=== PATIENT | female | born 1955 | race American Indian/Alaskan Native ===

== ENCOUNTER 2020-09-26 10:23 | Inpatient (IN) | payer OTHER ==
--- NOTE | 2020-09-26 10:40 | Event Note ---
ED Screening Note Date of service: 09/26/20 Time: 10:40 ED Screening Note: 64-year-old -[place] female presents to the emergency room for worsening abdominal pain with distention and not able to have a bowel movement in 3 days. Patient states that she is vomiting up bile but denies any diarrhea denies any stool. Patient states she thinks she has had a history of a bowel obstruction in the past but not 100% sure. Patient states that her pain is a 10 out of 10. This initial assessment/diagnostic orders/clinical plan/treatment(s) is/are subject to change based on patients health status, clinical progression and re- assessment by fellow clinical providers in the ED. Further treatment and workup at subsequent clinical providers discretion. Patient/guardian urged not to elope from the ED as their condition may be serious if not clinically assessed and managed. Initial orders include:
[2020-09-26] MEDS ORDERED: ONDANSETRON 4 MG/2 ML INJ IV ONE (10:41)
[2020-09-26] MEDS ORDERED: SODIUM CHLORIDE 0.9% 1000 ML 1,000 ML IV ONE (10:41)
[2020-09-26] MEDS ORDERED: MORPHINE 4 MG/1 ML INJ IV ONE (11:02)
--- NOTE | 2020-09-26 11:04 | Emergency Department Report ---
HPI - General Chief Complaint: Abdominal Pain Time Seen by Provider: 09/26/20 10:35 - HPI HPI: This is a 64-year-old -[place] female presents to the emergency department with a complaint of a 2-day history of abdominal pain with associated nausea and vomiting. Patient also says that she has not had a bowel movement in about 4 to 5 days. The patient tried a laxative without any relief. Her abdominal pain is currently 10 out of 10 in intensity and sharp and constant. It worsens when she is laying on her stomach or laying on her side. No known alleviating factors. She has a past medical history of hypertension. The patient says that she has a previous hysterectomy. The patient also says that she had some type of surgery previously on her "intestines", but she is unsure whether or not she has a previous bowel obstruction. No recent travel or sick contacts at home. She is a tobacco smoker. ED Past Medical Hx - Past Medical History Previous Medical History?: Yes Hx Hypertension: Yes - Surgical History Past Surgical History?: Yes Additional Surgical History: Hysterectomy - Social History Smoking Status: Current Every Day Smoker Substance Use Type: Alcohol, Marijuana ED Review of Systems ROS: Stated complaint: ABD PAIN Other details as noted in HPI Comment: All other systems reviewed and negative Constitutional: denies: chills, fever Eyes: denies: eye pain, vision change ENT: denies: ear pain, throat pain Respiratory: denies: cough, shortness of breath Cardiovascular: denies: chest pain, palpitations Gastrointestinal: abdominal pain, nausea, vomiting, constipation Genitourinary: denies: dysuria, discharge Musculoskeletal: denies: back pain, arthralgia Skin: denies: rash, lesions Neurological: denies: headache, weakness Physical Exam - Physical Exam Vital Signs: Vital Signs 09/26/20 09/26/20 10:30 10:33 Temperature 98.5 F Pulse Rate 95 H 95 H Respiratory 18 Rate Blood Pressure 156/91 Blood Pressure 156/91 [Right] O2 Sat by Pulse 100 100 Oximetry Physical Exam: GENERAL: The patient is well-developed well-nourished. HENT: Normocephalic. Atraumatic. Patient has moist mucous membranes. EYES: Extraocular motions are intact. NECK: Supple. Trachea is midline. CHEST/LUNGS: Clear to auscultation. There is no respiratory distress noted. HEART/CARDIOVASCULAR: Regular. There is no tachycardia. There is no murmur. ABDOMEN: Abdomen is soft. Upper abdominal tenderness to palpation. Mild guarding. No rebound tenderness. Patient has normal bowel sounds. There is no abdominal distention. SKIN: Skin is warm and dry. NEURO: The patient is awake, alert, and oriented. The patient is cooperative. The patient has no focal neurologic deficits. Normal speech. MUSCULOSKELETAL: There is no tenderness or deformity. There is no limitation range of motion. ED Course Vital Signs 09/26/20 09/26/20 10:30 10:33 Temperature 98.5 F Pulse Rate 95 H 95 H Respiratory 18 Rate Blood Pressure 156/91 Blood Pressure 156/91 [Right] O2 Sat by Pulse 100 100 Oximetry ED Medical Decision Making - Lab Data Result diagrams: 09/26/20 11:22 09/26/20 11:22 Lab Results 09/26/20 09/26/20 09/26/20 Range/Units 11:22 11:22 11:22 WBC 20.1 H (4.5-11.0) K/mm3 RBC 5.67 H (3.65-5.03) M/mm3 Hgb 13.2 (10.1-14.3) gm/dl Hct 42.1 (30.3-42.9) % MCV 74 L (79-97) fl MCH 23 L (28-32) pg MCHC 31 (30-34) % RDW 16.2 H (13.2-15.2) % Plt Count 267 (140-440) K/mm3 Lymph % (Auto) 5.6 L (13.4-35.0) % [place] % (Auto) 7.8 H (0.0-7.3) % Eos % (Auto) 0.0 (0.0-4.3) % Baso % (Auto) 0.4 (0.0-1.8) % Lymph # (Auto) 1.1 L (1.2-5.4) K/mm3 [place] # (Auto) 1.6 H (0.0-0.8) K/mm3 Eos # (Auto) 0.0 (0.0-0.4) K/mm3 Baso # (Auto) 0.1 (0.0-0.1) K/mm3 Seg Neutrophils % 86.2 H (40.0-70.0) % Seg Neutrophils # 17.3 H (1.8-7.7) K/mm3 Sodium 142 (137-145) mmol/L Potassium 3.4 L (3.6-5.0) mmol/L Chloride 106.7 (98-107) mmol/L Carbon Dioxide 20 L (22-30) mmol/L Anion Gap 19 mmol/L BUN 15 (7-17) mg/dL Creatinine 0.6 (0.6-1.2) mg/dL Estimated GFR > 60 ml/min BUN/Creatinine Ratio 25 % Glucose 145 H (65-100) mg/dL Calcium 8.4 (8.4-10.2) mg/dL Total Bilirubin 0.70 (0.1-1.2) mg/dL AST 31 (5-40) units/L ALT 34 (7-56) units/L Alkaline Phosphatase 143 H (35-129) units/L Total Protein 6.8 (6.3-8.2) g/dL Albumin 3.4 L (3.9-5) g/dL Albumin/Globulin Ratio 1.0 % Lipase 980 H (13-60) units/L Urine Color (Yellow) Urine Turbidity (Clear) Urine pH (5.0-7.0) Ur Specific [place] (1.003-1.030) Urine Protein (Negative) mg/dL Urine Glucose (UA) (Negative) mg/dL Urine Ketones (Negative) mg/dL Urine Blood (Negative) Urine Nitrite (Negative) Urine Bilirubin (Negative) Urine Urobilinogen (<2.0) mg/dL Ur Leukocyte Esterase (Negative) Urine WBC (Auto) (0.0-6.0) /HPF Urine RBC (Auto) (0.0-6.0) /HPF U Epithel Cells (Auto) (0-13.0) /HPF Urine Mucus /HPF 09/26/20 Range/Units 13:34 WBC (4.5-11.0) K/mm3 RBC (3.65-5.03) M/mm3 Hgb (10.1-14.3) gm/dl Hct (30.3-42.9) % MCV (79-97) fl MCH (28-32) pg MCHC (30-34) % RDW (13.2-15.2) % Plt Count (140-440) K/mm3 Lymph % (Auto) (13.4-35.0) % [place] % (Auto) (0.0-7.3) % Eos % (Auto) (0.0-4.3) % Baso % (Auto) (0.0-1.8) % Lymph # (Auto) (1.2-5.4) K/mm3 [place] # (Auto) (0.0-0.8) K/mm3 Eos # (Auto) (0.0-0.4) K/mm3 Baso # (Auto) (0.0-0.1) K/mm3 Seg Neutrophils % (40.0-70.0) % Seg Neutrophils # (1.8-7.7) K/mm3 Sodium (137-145) mmol/L Potassium (3.6-5.0) mmol/L Chloride (98-107) mmol/L Carbon Dioxide (22-30) mmol/L Anion Gap mmol/L BUN (7-17) mg/dL Creatinine (0.6-1.2) mg/dL Estimated GFR ml/min BUN/Creatinine Ratio % Glucose (65-100) mg/dL Calcium (8.4-10.2) mg/dL Total Bilirubin (0.1-1.2) mg/dL AST (5-40) units/L ALT (7-56) units/L Alkaline Phosphatase (35-129) units/L Total Protein (6.3-8.2) g/dL Albumin (3.9-5) g/dL Albumin/Globulin Ratio % Lipase (13-60) units/L Urine Color Yellow (Yellow) Urine Turbidity Clear (Clear) Urine pH 6.0 (5.0-7.0) Ur Specific [place] 1.053 H (1.003-1.030) Urine Protein 30 mg/dl (Negative) mg/dL Urine Glucose (UA) Neg (Negative) mg/dL Urine Ketones Neg (Negative) mg/dL Urine Blood Sm (Negative) Urine Nitrite Neg (Negative) Urine Bilirubin Neg (Negative) Urine Urobilinogen < 2.0 (<2.0) mg/dL Ur Leukocyte Esterase Neg (Negative) Urine WBC (Auto) < 1.0 (0.0-6.0) /HPF Urine RBC (Auto) 3.0 (0.0-6.0) /HPF U Epithel Cells (Auto) 2.0 (0-13.0) /HPF Urine Mucus Few /HPF - Radiology Data Radiology results: report reviewed CT ABDOMEN AND PELVIS WITH CONTRAST INDICATION / CLINICAL INFORMATION: acute abd pain w/distention. TECHNIQUE: Axial CT images were obtained through the abdomen and pelvis following the administration of intravenous contrast. All CT scans at this location are performed using CT dose reduction for ALARA by means of automated exposure control. COMPARISON: None available. FINDINGS: LOWER CHEST: No significant abnormality. LIVER: Hepatic steatosis. GALLBLADDER: No significant abnormality. PANCREAS: There is peripancreatic edema and mild inflammatory change. Free fluid is seen along the posterior aspect of the pancreatic tail as well as in the region of the pancreatic head and proximal duodenum. No well-defined peripancreatic fluid collection is seen. No pancreatic necrosis is visualized. SPLEEN: No significant abnormality. ADRENALS: No significant abnormality. KIDNEYS / URETERS: No significant abnormality. URINARY BLADDER: No significant abnormality. REPRODUCTIVE ORGANS: No significant abnormality. STOMACH / SMALL BOWEL: There is questionable inflammation of the duodenum with adjacent edema. This may be sympathetic. COLON: Extensive scattered colonic diverticulosis without evidence of inflammation. APPENDIX: Not definitively visualized. PERITONEUM: There is free fluid along the posterior aspect of the pancreas as well as trace pelvic free fluid. No free air. No fluid collection. LYMPH NODES: No significant adenopathy. AORTA / ARTERIES: No significant abnormality. IVC / VEINS: No significant abnormality. SKELETAL SYSTEM: Age-indeterminate compression fracture of the superior endplate of L2 with approximately 30% height loss. ADDITIONAL FINDINGS: None. IMPRESSION: 1. Findings most compatible with acute pancreatitis without necrosis. Correlation with serum amylase and lipase is recommended. Alternatively, these findings could represent duodenitis in the right clinical setting. 2. Hepatic steatosis. 3. Age-indeterminate compression fracture of the superior endplate of L2 with 30% height loss. - Medical Decision Making This patient presents to the emergency department with a few days of upper abdominal pain and 4 to 5 days of constipation. On examination the patient has reproducible upper abdominal tenderness to palpation with some mild guarding, but the abdomen is soft and nondistended. Labs show a leukocytosis of 20,000 and later a lipase of 980. CT scan of the abdomen and pelvis with IV contrast shows pancreatitis with some possible duodenitis. The patient has been given some IV fluid resuscitation, IV analgesia, IV antibiotics. She will be admitted to the hospital for further evaluation and treatment and was accepted for ad mission by the hospitalist, Dr. Wild. Critical Care Time: No Critical care attestation.: If time is entered above; I have spent that time in minutes in the direct care of this critically ill patient, excluding procedure time. ED Disposition Clinical Impression: Duodenitis Acute pancreatitis Qualifiers: Pancreatitis type: unspecified pancreatitis type Acute pancreatitis complication: no infection or necrosis Qualified Code(s): K85.90 - Acute pancreatitis without necrosis or infection, unspecified Leukocytosis Qualifiers: Leukocytosis type: unspecified Qualified Code(s): D72.829 - Elevated white blood cell count, unspecified Hypertension Qualifiers: Hypertension type: essential hypertension Qualified Code(s): I10 - Essential (primary) hypertension Disposition: 09 OP ADMIT IP TO THIS HOSP Is pt being admited?: Yes Condition: Serious Instructions: Abdominal Pain (ED), Hypertension (ED) Referrals: PRIMARY CARE, [Primary Care Provider] - 3-5 Days Time of Disposition: 13:46
[2020-09-26 11:52] LABS: Basophils # (Auto) 0.1 K/mm3 (0.0-0.1); Basophils % (Auto) 0.4 % (0.0-1.8); Hematocrit 42.1 % (30.3-42.9); Hemoglobin 13.2 gm/dl (10.1-14.3); Lymphocytes # (Auto) 1.1 K/mm3 (1.2-5.4); Lymphocytes % (Auto) 5.6 % (13.4-35.0); Mean Corpuscular HGB Conc 31 % (30-34); Mean Corpuscular Volume 74 fl (79-97); Monocytes # (Auto) 1.6 K/mm3 (0.0-0.8); Monocytes % (Auto) 7.8 % (0.0-7.3); Platelet Count 267 K/mm3 (140-440); Red Blood Count 5.67 M/mm3 (3.65-5.03); Red Cell Distribution Width 16.2 % (13.2-15.2)
[2020-09-26 12:09] LABS: Alanine Aminotransferase 34 units/L (7-56); Albumin 3.4 g/dL (3.9-5); Blood Urea Nitrogen 15 mg/dL (7-17); Calcium 8.4 mg/dL (8.4-10.2); Hemolysis Index 4
[2020-09-26 12:10] LABS: BUN/Creatinine Ratio 25
--- NOTE | 2020-09-26 13:00 | Cat Scan Report ---
CT ABDOMEN AND PELVIS WITH CONTRAST INDICATION / CLINICAL INFORMATION: acute abd pain w/distention. TECHNIQUE: Axial CT images were obtained through the abdomen and pelvis following the administration of intraven ous contrast. All CT scans at this location are performed using CT dose reduction for ALARA by means of automated exposure control. COMPARISON: None available. FINDINGS: LOWER CHEST: No significant abnormality. LIVER: Hepatic steatosis. GALLBLADDER: No significant abnormality. PANCREAS: There is peripancreatic edema and mild inflammatory change. Free fluid is seen along the po sterior aspect of the pancreatic tail as well as in the region of the pancreatic head and proximal du odenum. No well-defined peripancreatic fluid collection is seen. No pancreatic necrosis is visualized . SPLEEN: No significant abnormality. ADRENALS: No significant abnormality. KIDNEYS / URETERS: No significant abnormality. URINARY BLADDER: No significant abnormality. REPRODUCTIVE ORGANS: No significant abnormality. STOMACH / SMALL BOWEL: There is questionable inflammation of the duodenum with adjacent edema. This m ay be sympathetic. COLON: Extensive scattered colonic diverticulosis without evidence of inflammation. APPENDIX: Not definitively visualized. PERITONEUM: There is free fluid along the posterior aspect of the pancreas as well as trace pelvic fr ee fluid. No free air. No fluid collection. LYMPH NODES: No significant adenopathy. AORTA / ARTERIES: No significant abnormality. IVC / VEINS: No significant abnormality. SKELETAL SYSTEM: Age-indeterminate compression fracture of the superior endplate of L2 with approxima tely 30% height loss. ADDITIONAL FINDINGS: None. IMPRESSION: 1. Findings most compatible with acute pancreatitis without necrosis. Correlation with serum amylase and lipase is recommended. Alternatively, these findings could represent duodenitis in the right clin ical setting. 2. Hepatic steatosis. 3. Age-indeterminate compression fracture of the superior endplate of L2 with 30% height loss. Signer Name: Esteban Crawford MD Signed: 09/26/2020 12:55 PM Workstation Name: [id number]
[2020-09-26] MEDS ORDERED: PIPERACIL/TAZOBACTA 4.5/NS 100 4.5 GM/100 ML VIAL IV ONE (13:05)
[2020-09-26 14:05] LABS: Bilirubin,Urine NEG (Negative); Blood,Urine SM (Negative); Color,Urine Yellow (Yellow); Mucus,Urine FEW /HPF; Urobilinogen,Urine < 2.0 mg/dL (<2.0); WBC,Urine < 1.0 /HPF (0.0-6.0)
[2020-09-26] MEDS ORDERED: ONDANSETRON 4 MG/2 ML INJ IV PRN ×3 (19:06→19:40)
[2020-09-26] MEDS ORDERED: ACETAMINOPHEN 325 MG TAB PO PRN ×2 (19:35→19:40)
--- NOTE | 2020-09-26 19:35 | History and Physical Report ---
History of Present Illness Date of examination: 09/26/20 Date of admission: 09/26/20 13:46 Chief complaint: Severe abdominal pain for 2 days associated with nausea and vomiting History of present illness: 64-year-old -[place] female with history of hypertension comes in for 2- day history of epigastric pain associated with nausea and vomiting. Pain is about 10 on a scale of 1-10. Intermittent in nature. Sharp and nature. Worsens when she lies on her stomach. No known alleviating factors. This is her first episode. Patient consumed some alcohol on Sunday which is 2 days ago. No history of alcoholism. No precipitating factors except for positional changes. - Past Medical History Previous Medical History?: Yes --Hypertension: Yes - Surgical History Past Surgical History?: Yes Hysterectomy - Social History Smoking Status: Current Every Day Smoker Substance Use Type: Alcohol, Marijuana Family history Hypertension Review of Systems ROS: Stated complaint: ABD PAIN--severe 10/10 Other details as noted in HPI Comment: All other systems reviewed and negative Constitutional: denies: chills, fever Eyes: denies: eye pain, vision change ENT: denies: ear pain, throat pain Respiratory: denies: cough, shortness of breath Cardiovascular: denies: chest pain, palpitations Gastrointestinal: Severe abdominal pain associated with nausea and vomiting Genitourinary: denies: dysuria, discharge Musculoskeletal: denies: back pain, arthralgia Skin: denies: rash, lesions Neurological: denies: headache, weakness Medications and Allergies Allergies Allergy/AdvReac Type Severity Reaction Status Date / Time No Known Allergies Allergy Verified 09/26/20 19:10 Home Medications Medication Instructions Recorded Confirmed Last Taken Type amLODIPine [Norvasc] 5 mg PO DAILY 09/27/20 09/27/20 09/25/20 08:45 History Active Meds: Active Medications Hydromorphone HCl (Hydromorphone 1 Mg/1 Ml Inj) 0.5 mg IV Q3H PRN PRN Reason: Pain , Severe (7-10) Ondansetron HCl (Ondansetron 4 Mg/2 Ml Inj) 6 mg IV Q6H PRN PRN Reason: Nausea Exam - Constitutional Vitals: Temp Pulse Resp BP Pulse Ox 98.6 F 94 H 18 165/90 99 09/26/20 18:45 09/26/20 18:45 09/26/20 18:45 09/26/20 18:45 09/26/20 18:45 General appearance: Present: no acute distress, well-nourished - EENT Eyes: Present: PERRL ENT: hearing intact, clear oral mucosa - Neck Neck: Present: supple, normal ROM - Respiratory Respiratory effort: normal Respiratory: bilateral: CTA - Cardiovascular Heart rate: 78 Rhythm: regular Heart Sounds: Present: S1 & S2. Absent: rub, click - Extremities Extremities: pulses symmetrical, No edema Peripheral Pulses: within normal limits - Abdominal General gastrointestinal: Present: soft, non-tender, non-distended, normal bowel sounds Localized gastrointestinal: tender: epigastric periumbilical, guarding: epigastric periumbilical Female genitourinary: Present: normal - Rectal Rectal Exam: deferred - Integumentary Integumentary: Present: clear, warm, dry - Musculoskeletal Musculoskeletal: gait normal, strength equal bilaterally - Psychiatric Psychiatric: appropriate mood/affect, intact judgment & insight - Neurologic Neurologic: CNII-XII intact, moves all extremities - Allied Health Allied health notes reviewed: nursing, case management Results - Labs CBC & Chem 7: 09/27/20 04:54 09/27/20 04:54 Labs: Laboratory Last Values WBC 20.1 K/mm3 (4.5-11.0) H 09/26/20 11:22 RBC 5.67 M/mm3 (3.65-5.03) H 09/26/20 11:22 Hgb 13.2 gm/dl (10.1-14.3) 09/26/20 11:22 Hct 42.1 % (30.3-42.9) 09/26/20 11:22 MCV 74 fl (79-97) L 09/26/20 11:22 MCH 23 pg (28-32) L 09/26/20 11:22 MCHC 31 % (30-34) 09/26/20 11:22 RDW 16.2 % (13.2-15.2) H 09/26/20 11:22 Plt Count 267 K/mm3 (140-440) 09/26/20 11:22 Lymph % (Auto) 5.6 % (13.4-35.0) L 09/26/20 11:22 [place] % (Auto) 7.8 % (0.0-7.3) H 09/26/20 11:22 Eos % (Auto) 0.0 % (0.0-4.3) 09/26/20 11:22 Baso % (Auto) 0.4 % (0.0-1.8) 09/26/20 11:22 Lymph # (Auto) 1.1 K/mm3 (1.2-5.4) L 09/26/20 11:22 [place] # (Auto) 1.6 K/mm3 (0.0-0.8) H 09/26/20 11:22 Eos # (Auto) 0.0 K/mm3 (0.0-0.4) 09/26/20 11:22 Baso # (Auto) 0.1 K/mm3 (0.0-0.1) 09/26/20 11:22 Seg Neutrophils % 86.2 % (40.0-70.0) H 09/26/20 11:22 Seg Neutrophils # 17.3 K/mm3 (1.8-7.7) H 09/26/20 11:22 Sodium 142 mmol/L (137-145) 09/26/20 11:22 Potassium 3.4 mmol/L (3.6-5.0) L 09/26/20 11:22 Chloride 106.7 mmol/L (98-107) 09/26/20 11:22 Carbon Dioxide 20 mmol/L (22-30) L 09/26/20 11:22 Anion Gap 19 mmol/L 09/26/20 11:22 BUN 15 mg/dL (7-17) 09/26/20 11:22 Creatinine 0.6 mg/dL (0.6-1.2) 09/26/20 11:22 Estimated GFR > 60 ml/min 09/26/20 11:22 BUN/Creatinine Ratio 25 % 09/26/20 11:22 Glucose 145 mg/dL (65-100) H 09/26/20 11:22 Calcium 8.4 mg/dL (8.4-10.2) 09/26/20 11:22 Total Bilirubin 0.70 mg/dL (0.1-1.2) 09/26/20 11:22 AST 31 units/L (5-40) 09/26/20 11:22 ALT 34 units/L (7-56) 09/26/20 11:22 Alkaline Phosphatase 143 units/L (35-129) H 09/26/20 11:22 Total Protein 6.8 g/dL (6.3-8.2) 09/26/20 11:22 Albumin 3.4 g/dL (3.9-5) L 09/26/20 11:22 Albumin/Globulin Ratio 1.0 % 09/26/20 11:22 Lipase 980 units/L (13-60) H 09/26/20 11:22 Urine Color Yellow (Yellow) 09/26/20 13:34 Urine Turbidity Clear (Clear) 09/26/20 13:34 Urine pH 6.0 (5.0-7.0) 09/26/20 13:34 Ur Specific [place] 1.053 (1.003-1.030) H 09/26/20 13:34 Urine Protein 30 mg/dl mg/dL (Negative) 09/26/20 13:34 Urine Glucose (UA) Neg mg/dL (Negative) 09/26/20 13:34 Urine Ketones Neg mg/dL (Negative) 09/26/20 13:34 Urine Blood Sm (Negative) 09/26/20 13:34 Urine Nitrite Neg (Negative) 09/26/20 13:34 Urine Bilirubin Neg (Negative) 09/26/20 13:34 Urine Urobilinogen < 2.0 mg/dL (<2.0) 09/26/20 13:34 Ur Leukocyte Esterase Neg (Negative) 09/26/20 13:34 Urine WBC (Auto) < 1.0 /HPF (0.0-6.0) 09/26/20 13:34 Urine RBC (Auto) 3.0 /HPF (0.0-6.0) 09/26/20 13:34 U Epithel Cells (Auto) 2.0 /HPF (0-13.0) 09/26/20 13:34 Urine Mucus Few /HPF 09/26/20 13:34 Short CBC 09/26/20 Range/Units 11:22 WBC 20.1 H (4.5-11.0) K/mm3 Hgb 13.2 (10.1-14.3) gm/dl Hct 42.1 (30.3-42.9) % Plt Count 267 (140-440) K/mm3 BMP 09/26/20 11:22 Sodium 142 Potassium 3.4 L Chloride 106.7 Carbon Dioxide 20 L BUN 15 Creatinine 0.6 Glucose 145 H Calcium 8.4 Liver Function 09/26/20 Range/Units 11:22 Total Bilirubin 0.70 (0.1-1.2) mg/dL AST 31 (5-40) units/L ALT 34 (7-56) units/L Alkaline Phosphatase 143 H (35-129) units/L Albumin 3.4 L (3.9-5) g/dL Urine 09/26/20 Range/Units 13:34 Urine Color Yellow (Yellow) Urine pH 6.0 (5.0-7.0) Ur Specific [place] 1.053 H (1.003-1.030) Urine Protein 30 mg/dl (Negative) mg/dL Urine Glucose (UA) Neg (Negative) mg/dL Short CBC 09/26/20 09/27/20 Range/Units 11:22 04:54 WBC 20.1 H 21.1 H (4.5-11.0) K/mm3 Hgb 13.2 13.5 (10.1-14.3) gm/dl Hct 42.1 41.7 (30.3-42.9) % Plt Count 267 237 (140-440) K/mm3 BMP 09/26/20 09/27/20 11:22 04:54 Sodium 142 140 Potassium 3.4 L 3.5 L Chloride 106.7 106.1 Carbon Dioxide 20 L 21 L BUN 15 12 Creatinine 0.6 0.6 Glucose 145 H 108 H Calcium 8.4 8.5 Liver Function 09/26/20 09/27/20 Range/Units 11:22 04:54 Total Bilirubin 0.70 0.60 (0.1-1.2) mg/dL AST 31 22 (5-40) units/L ALT 34 25 (7-56) units/L Alkaline Phosphatase 143 H 136 H (35-129) units/L Albumin 3.4 L 3.3 L (3.9-5) g/dL Urine 09/26/20 Range/Units 13:34 Urine Color Yellow (Yellow) Urine pH 6.0 (5.0-7.0) Ur Specific [place] 1.053 H (1.003-1.030) Urine Protein 30 mg/dl (Negative) mg/dL Urine Glucose (UA) Neg (Negative) mg/dL Microbiology: Microbiology 09/26/20 13:22 Peripheral/Venous Blood Culture - Preliminary Culture in Progress 09/26/20 13:22 Peripheral/Venous Blood Culture - Preliminary Culture in Progress - Imaging and Cardiology CT scan - abdomen: report reviewed Imaging and Cardiology: Abdominal CAT scan Findings most compatible with acute pancreatitis without necrosis. Correlate with serum amylase and lipase. Alternate previous findings could represent duodenitis in the right clinical setting. Hepatic steatosis. Age-indeterminate compression fracture of the superior endplate of L2 with 30% height loss. Kim/IV: IV Catheter Type [Left Peripheral IV Antecubital] Assessment and Plan Advance Directives: Yes - Patient Problems (1) Systemic inflammatory response syndrome Current Visit: Yes Status: Acute Plan to address problem: Patient has a high white count and tachycardic No source of infection found High white count secondary to acute pancreatitis Patient initiated on IV empiric antibiotics (2) Acute pancreatitis Current Visit: Yes Status: Acute Qualifiers: Pancreatitis type: unspecified pancreatitis type Acute pancreatitis complication: no infection or necrosis Qualified Code(s): K85.90 - Acute pancreatitis without necrosis or infection, unspecified Plan to address problem: Patient is kept n.p.o. IV Dilaudid 0.5 every 3 as needed IV fluids for now Pain management IV Zofran and Reglan as necessary Repeat amylase and lipase lipase is very high in the 900s (3) Hypertension Current Visit: Yes Status: Chronic Qualifiers: Hypertension type: essential hypertension Qualified Code(s): I10 - Essential (primary) hypertension Plan to address problem: Adjust medications as necessary May need Catapres patch (4) Duodenitis Current Visit: Yes Status: Acute Plan to address problem: IV Protonix for now (5) Hypokalemia Current Visit: Yes Status: Acute Plan to address problem: Supplemented (6) RBC microcytosis Current Visit: Yes Status: Chronic Plan to address problem: Possible iron deficiency anemia Iron level being checked (7) Malnutrition Current Visit: Yes Status: Chronic Qualifiers: Protein-calorie malnutrition severity: mild Plan to address problem: Dietitian consult because the patient is n.p.o. (8) DVT prophylaxis Current Visit: Yes Status: Acute Plan to address problem: On heparin and GI prophylaxis
[2020-09-26] MEDS ORDERED: METOCLOPRAMIDE 10 MG/2 ML INJ IV PRN (19:40)
[2020-09-26] MEDS: HYDROmorphone 1 MG/1 ML INJ IV PRN (20:06)
[2020-09-26] MEDS ORDERED: FAMOTIDINE 20 MG/2 ML INJ IV SCH (22:00)
[2020-09-27] MEDS ORDERED: hydrALAZINE 20 MG/1 ML INJ IV PRN (00:37)
[2020-09-27] MEDS: HYDROmorphone 1 MG/1 ML INJ IV PRN ×5 (00:49→21:50)
[2020-09-27] MEDS: CEFEPIME/NS 2 GM/100 ML 2 GM/100 ML BAG IV SCH ×4 (03:53→21:53)
[2020-09-27 05:28] LABS: Hematocrit 41.7 % (30.3-42.9); Hemoglobin 13.5 gm/dl (10.1-14.3); Mean Corpuscular HGB Conc 32 % (30-34); Mean Corpuscular Volume 74 fl (79-97); Platelet Count 237 K/mm3 (140-440); Red Blood Count 5.66 M/mm3 (3.65-5.03); Red Cell Distribution Width 16.1 % (13.2-15.2)
[2020-09-27 05:55] LABS: Alanine Aminotransferase 25 units/L (7-56); Albumin 3.3 g/dL (3.9-5); Blood Urea Nitrogen 12 mg/dL (7-17); Calcium 8.5 mg/dL (8.4-10.2); Hemolysis Index 3
[2020-09-27 06:10] LABS: BUN/Creatinine Ratio 20
[2020-09-27 06:19] LABS: Anisocytosis 1+; Eosinophils % (Manual) 0.5 % (0.0-4.3); Platelet Estimate Consistent w Auto; Total Cells Counted 200
[2020-09-27] MEDS ORDERED: NICOTINE 14 MG/24 HR PATCH TD ONE (06:42)
[2020-09-27] MEDS ORDERED: cloNIDine TTS 0.1 MG/24 HR PATCH TD SCH (07:00)
[2020-09-27] MEDS: D5W/0.9% NACL 1,000 ML IV SCH (08:29)
[2020-09-27] MEDS ORDERED: NICOTINE 14 MG/24 HR PATCH TD NR (09:00)
[2020-09-27] MEDS: PANTOPRAZOLE 40 MG INJ IV SCH ×2 (10:31→21:50)
[2020-09-27] MEDS: HEPARIN 5,000 UNIT/1 ML VIAL SUB-Q SCH ×2 (10:41→21:51)
--- NOTE | 2020-09-27 16:57 | Progress Note ---
Assessment and Plan Assessment and plan: SIRS -Presented with leukocytosis and tachycardia -09/26 blood cultures x2 pending -09/26 CT abdomen/pelvis shows acute pancreatitis -Antibiotic therapy -Supportive care Acute pancreatitis -09/26 CT abdomen/pelvis shows -Abdomen lipase 908 -09/27 amylase 331 -Antibiotic therapy -N.p.o. -MIVF -Accu-Cheks every 4 while n.p.o. -Supportive care -Antiemetics as needed -As needed analgesic -Trend amylase and lipase Duodenitis -09/26 CT abdomen/pelvis shows possible duodenitis -Protonix -Supportive care Hypokalemia -Presented with a potassium of 3.4, repleted -09/16 potassium 3.5 -Repleted -Trend potassium -Intervene as needed Metabolic acidosis -09/26 CO2 20 on BMP -09/27 CO2 21 -MIVF -Trend BMP Leukocytosis -Presented with WBC of 20.1, 09/27 WBC 21.1 -Antibiotic therapy -Trend CBC RBC microcytosis -Presented with H/H 13.2/42.1, MCV 74 -09/26 iron level pending -09/27 Folic acid pending Malnutrition -Dietary consult -Nutrition supplementation when not n.p.o. Hypertension -Patient was initiated on clonidine transdermal -Blood pressure monitoring per protocol -Patient's home medications include Norvasc -Hydralazine as needed for SBP greater than 160 DVT prophylaxis -Heparin subcu -GI prophylaxis -SCDs to bilateral extremities while in bed History Interval history: This 64-year-old female with hypertension, tobacco, marijuana and EtOH abuse (1 pint of hard liquor per 2 days with occasional 1 glass of wine) who was admitted to the hospital on 09/26 with a 2-day history of sharp, intermittent epigastric pain 06/05 associated with nausea and vomiting which worsened with prone position. Work-up in the emergency department revealed leukocytosis, hypokale aron, metabolic acidosis with elevated alkaline phos lipase and amylase. Her abdomen/pelvis CT showed acute pancreatitis without necrosis, hepatic steatosis and age indeterminate compression fracture of the superior endplate of L2. Patient was admitted to the hospital service for acute pancreatitis, n.p.o. and initiated antibiotic therapy. 09/27: Hypokalemia, metabolic acidosis persists but no acute events reported overnight. Patient states that she is symptomatically better, states her abdomen does swell to the appearance of 5-6 months and expresses wish for alcohol and tobacco cessation Hospitalist Physical - Constitutional Vitals: Temp Pulse Resp BP Pulse Ox 99.1 F 87 18 146/88 98 09/27/20 08:51 09/27/20 10:34 09/27/20 08:51 09/27/20 10:34 09/27/20 08:51 General appearance: Present: no acute distress, well-nourished - EENT Eyes: Present: PERRL, EOM intact ENT: hearing intact, clear oral mucosa, dentition normal - Neck Neck: Present: normal ROM - Respiratory Respiratory effort: normal Respiratory: bilateral: CTA - Cardiovascular Rhythm: regular Heart Sounds: Present: S1 & S2. Absent: systolic murmur, diastolic murmur - Extremities Extremities: no ischemia, pulses intact, pulses symmetrical, No edema, normal temperature, normal color, Full ROM - Abdominal General gastrointestinal: soft, tender, distended, normal bowel sounds - Integumentary Integumentary: Present: clear, warm, dry - Psychiatric Psychiatric: appropriate mood/affect, cooperative - Neurologic Neurologic: CNII-XII intact, no focal deficits, moves all extremities - Allied Health Allied health notes reviewed: nursing Results - Labs CBC & Chem 7: 09/27/20 04:54 09/27/20 04:54 Labs: Laboratory Last Values WBC 21.1 K/mm3 (4.5-11.0) H 09/27/20 04:54 RBC 5.66 M/mm3 (3.65-5.03) H 09/27/20 04:54 Hgb 13.5 gm/dl (10.1-14.3) 09/27/20 04:54 Hct 41.7 % (30.3-42.9) 09/27/20 04:54 MCV 74 fl (79-97) L 09/27/20 04:54 MCH 24 pg (28-32) L 09/27/20 04:54 MCHC 32 % (30-34) 09/27/20 04:54 RDW 16.1 % (13.2-15.2) H 09/27/20 04:54 Plt Count 237 K/mm3 (140-440) 09/27/20 04:54 Lymph % (Auto) 5.6 % (13.4-35.0) L 09/26/20 11:22 [place] % (Auto) 7.8 % (0.0-7.3) H 09/26/20 11:22 Eos % (Auto) 0.0 % (0.0-4.3) 09/26/20 11:22 Baso % (Auto) 0.4 % (0.0-1.8) 09/26/20 11:22 Lymph # (Auto) 1.1 K/mm3 (1.2-5.4) L 09/26/20 11:22 Jefferson # (Auto) 1.6 K/mm3 (0.0-0.8) H 09/26/20 11:22 Eos # (Auto) 0.0 K/mm3 (0.0-0.4) 09/26/20 11:22 Baso # (Auto) 0.1 K/mm3 (0.0-0.1) 09/26/20 11:22 Add Manual Diff Complete 09/27/20 04:54 Total Counted 200 09/27/20 04:54 Seg Neutrophils % 86.2 % (40.0-70.0) H 09/26/20 11:22 Seg Neuts % (Manual) 88.5 % (40.0-70.0) H 09/27/20 04:54 Lymphocytes % (Manual) 8.0 % (13.4-35.0) L 09/27/20 04:54 Monocytes % (Manual) 3.0 % (0.0-7.3) 09/27/20 04:54 Eosinophils % (Manual) 0.5 % (0.0-4.3) 09/27/20 04:54 Nucleated RBC % Not Reportable 09/27/20 04:54 Seg Neutrophils # 17.3 K/mm3 (1.8-7.7) H 09/26/20 11:22 Seg Neutrophils # Man 18.7 K/mm3 (1.8-7.7) H 09/27/20 04:54 Band Neutrophils # 0.0 K/mm3 09/27/20 04:54 Lymphocytes # (Manual) 1.7 K/mm3 (1.2-5.4) 09/27/20 04:54 Abs React Lymphs (Man) 0.0 K/mm3 09/27/20 04:54 Monocytes # (Manual) 0.6 K/mm3 (0.0-0.8) 09/27/20 04:54 Eosinophils # (Manual) 0.1 K/mm3 (0.0-0.4) 09/27/20 04:54 Basophils # (Manual) 0.0 K/mm3 (0.0-0.1) 09/27/20 04:54 Metamyelocytes # 0.0 K/mm3 09/27/20 04:54 Myelocytes # 0.0 K/mm3 09/27/20 04:54 Promyelocytes # 0.0 K/mm3 09/27/20 04:54 Blast Cells # 0.0 K/mm3 09/27/20 04:54 WBC Morphology Not Reportable 09/27/20 04:54 Hypersegmented Neuts Not Reportable 09/27/20 04:54 Hyposegmented Neuts Not Reportable 09/27/20 04:54 Hypogranular Neuts Not Reportable 09/27/20 04:54 Smudge Cells Not Reportable 09/27/20 04:54 Toxic Granulation Not Reportable 09/27/20 04:54 Toxic Vacuolation Not Reportable 09/27/20 04:54 Dohle Bodies Not Reportable 09/27/20 04:54 Pelger-Huet Anomaly Not Reportable 09/27/20 04:54 Cammie Rods Not Reportable 09/27/20 04:54 Platelet Estimate Consistent w auto 09/27/20 04:54 Clumped Platelets Not Reportable 09/27/20 04:54 Plt Clumps, EDTA Not Reportable 09/27/20 04:54 Large Platelets Not Reportable 09/27/20 04:54 Giant Platelets Not Reportable 09/27/20 04:54 Platelet Satelliting Not Reportable 09/27/20 04:54 Plt Morphology Comment Not Reportable 09/27/20 04:54 RBC Morphology Not Reportable 09/27/20 04:54 Dimorphic RBCs Not Reportable 09/27/20 04:54 Polychromasia Not Reportable 09/27/20 04:54 Hypochromasia Not Reportable 09/27/20 04:54 Poikilocytosis Not Reportable 09/27/20 04:54 Anisocytosis 1+ 09/27/20 04:54 Microcytosis Not Reportable 09/27/20 04:54 Macrocytosis Not Reportable 09/27/20 04:54 Spherocytes Not Reportable 09/27/20 04:54 Pappenheimer Bodies Not Reportable 09/27/20 04:54 Sickle Cells Not Reportable 09/27/20 04:54 Target Cells Not Reportable 09/27/20 04:54 Tear Drop Cells Not Reportable 09/27/20 04:54 Ovalocytes Not Reportable 09/27/20 04:54 Helmet Cells Not Reportable 09/27/20 04:54 Rios-Sanborn Bodies Not Reportable 09/27/20 04:54 [place] Rings Not Reportable 09/27/20 04:54 Brock Cells Not Reportable 09/27/20 04:54 Bite Cells Not Reportable 09/27/20 04:54 Crenated Cell Not Reportable 09/27/20 04:54 Elliptocytes Not Reportable 09/27/20 04:54 Acanthocytes (Spur) Not Reportable 09/27/20 04:54 Rouleaux Not Reportable 09/27/20 04:54 Hemoglobin C Crystals Not Reportable 09/27/20 04:54 Schistocytes Not Reportable 09/27/20 04:54 Malaria parasites Not Reportable 09/27/20 04:54 Jose Bodies Not Reportable 09/27/20 04:54 Hem Pathologist Commnt No 09/27/20 04:54 Sodium 140 mmol/L (137-145) 09/27/20 04:54 Potassium 3.5 mmol/L (3.6-5.0) L 09/27/20 04:54 Chloride 106.1 mmol/L (98-107) 09/27/20 04:54 Carbon Dioxide 21 mmol/L (22-30) L 09/27/20 04:54 Anion Gap 16 mmol/L 09/27/20 04:54 BUN 12 mg/dL (7-17) 09/27/20 04:54 Creatinine 0.6 mg/dL (0.6-1.2) 09/27/20 04:54 Estimated GFR > 60 ml/min 09/27/20 04:54 BUN/Creatinine Ratio 20 % 09/27/20 04:54 Glucose 108 mg/dL (65-100) H 09/27/20 04:54 Calcium 8.5 mg/dL (8.4-10.2) 09/27/20 04:54 Total Bilirubin 0.60 mg/dL (0.1-1.2) 09/27/20 04:54 AST 22 units/L (5-40) 09/27/20 04:54 ALT 25 units/L (7-56) 09/27/20 04:54 Alkaline Phosphatase 136 units/L (35-129) H 09/27/20 04:54 Total Protein 6.8 g/dL (6.3-8.2) 09/27/20 04:54 Albumin 3.3 g/dL (3.9-5) L 09/27/20 04:54 Albumin/Globulin Ratio 0.9 % 09/27/20 04:54 Amylase 331 units/L (27-131) H 09/27/20 04:54 Lipase 980 units/L (13-60) H 09/26/20 11:22 Urine Color Yellow (Yellow) 09/26/20 13:34 Urine Turbidity Clear (Clear) 09/26/20 13:34 Urine pH 6.0 (5.0-7.0) 09/26/20 13:34 Ur Specific [place] 1.053 (1.003-1.030) H 09/26/20 13:34 Urine Protein 30 mg/dl mg/dL (Negative) 09/26/20 13:34 Urine Glucose (UA) Neg mg/dL (Negative) 09/26/20 13:34 Urine Ketones Neg mg/dL (Negative) 09/26/20 13:34 Urine Blood Sm (Negative) 09/26/20 13:34 Urine Nitrite Neg (Negative) 09/26/20 13:34 Urine Bilirubin Neg (Negative) 09/26/20 13:34 Urine Urobilinogen < 2.0 mg/dL (<2.0) 09/26/20 13:34 Ur Leukocyte Esterase Neg (Negative) 09/26/20 13:34 Urine WBC (Auto) < 1.0 /HPF (0.0-6.0) 09/26/20 13:34 Urine RBC (Auto) 3.0 /HPF (0.0-6.0) 09/26/20 13:34 U Epithel Cells (Auto) 2.0 /HPF (0-13.0) 09/26/20 13:34 Urine Mucus Few /HPF 09/26/20 13:34 Microbiology: Microbiology 09/26/20 13:22 Peripheral/Venous Blood Culture - Preliminary NO GROWTH AFTER 24 HOURS 09/26/20 13:22 Peripheral/Venous Blood Culture - Preliminary NO GROWTH AFTER 24 HOURS Kim/IV: Voiding Method Toilet IV Catheter Type [Left Peripheral IV Antecubital] Active Medications - Current Medications Current Medications: Generic Name Dose Route Start Last Admin Trade Name Freq PRN Reason Stop Dose Admin Acetaminophen 650 mg 09/26/20 19:35 Acetaminophen 325 Mg Tab PO Q4H PRN Pain MILD(1-3)/Fever >100.5/MONTOYA Clonidine HCl 0.1 mg 09/27/20 07:00 09/27/20 10:34 Clonidine Tts 0.1 Mg/24 Hr Patch TD 0.1 mg Mo MAGGIE Administration Heparin Sodium (Porcine) 5,000 unit 09/27/20 10:00 09/27/20 10:41 Heparin 5,000 Unit/1 Ml Vial SUB-Q 5,000 unit Q12HR MAGGIE Administration Hydralazine HCl 10 mg 09/27/20 00:37 09/27/20 00:50 Hydralazine 20 Mg/1 Ml Inj IV 10/01/20 00:36 10 mg Q6HR PRN Administration Hypertension Hydromorphone HCl 0.5 mg 09/26/20 19:06 09/27/20 16:28 Hydromorphone 1 Mg/1 Ml Inj IV 0.5 mg Q3H PRN Administration Pain , Severe (7-10) Dextrose/Sodium Chloride 1,000 mls @ 75 mls/hr 09/26/20 20:00 09/27/20 08:29 D5ns IV 75 mls/hr DIRECT MAGGIE Administration Cefepime HCl 2 gm in 100 mls @ 200 mls/hr 09/26/20 20:00 09/27/20 12:03 Cefepime/Ns 2 Gm/100 Ml IV 200 mls/hr Q8H MAGGIE Administration Protocol Potassium Chloride 10 meq in 100 mls @ 100 mls/hr 09/27/20 17:00 Kcl 10meq/100ml IV 09/27/20 18:59 Q1H MAGGIE Magnesium Hydroxide 30 ml 09/27/20 17:00 Magnesium Hydroxide (Mom) Oral Liqd Udc PO Q8H PRN Constipation Metoclopramide HCl 10 mg 09/26/20 19:40 Metoclopramide 10 Mg/2 Ml Inj IV Q6H PRN Nausea And Vomiting Ondansetron HCl 4 mg 09/26/20 19:40 09/26/20 20:06 Ondansetron 4 Mg/2 Ml Inj IV 4 mg Q3H PRN Administration Nausea And Vomiting Pantoprazole Sodium 40 mg 09/27/20 10:00 09/27/20 10:31 Pantoprazole 40 Mg Inj IV 40 mg BID MAGGIE Administration Sodium Chloride 10 ml 09/26/20 19:35 Sodium Chloride 0.9% 10 Ml Flush Syringe IV PRN PRN LINE FLUSH Sodium Chloride 10 ml 09/26/20 22:00 09/27/20 10:49 Sodium Chloride 0.9% 10 Ml Flush Syringe IV Not Given BID MAGGIE
[2020-09-27] MEDS: MAGNESIUM HYDROXIDE (MOM) ORAL LIQD UDC PO PRN (17:12)
[2020-09-27 18:10] LABS: Iron 102 ug/dL (37-170); Total Iron Binding Capacity 298 mcg/dL (250-450)
[2020-09-27] MEDS: POTASSIUM CHLORIDE 10 MEQ 10 MEQ/100 ML BAG IV SCH ×2 (18:14→19:32)
[2020-09-28] MEDS: HYDROmorphone 1 MG/1 ML INJ IV PRN ×5 (00:51→19:47)
[2020-09-28] MEDS: D5W/0.9% NACL 1,000 ML IV SCH ×2 (00:55→19:34)
[2020-09-28] MEDS: CEFEPIME/NS 2 GM/100 ML 2 GM/100 ML BAG IV SCH ×3 (04:57→21:34)
[2020-09-28] MEDS: MAGNESIUM HYDROXIDE (MOM) ORAL LIQD UDC PO PRN (05:55)
[2020-09-28 07:16] LABS: Hematocrit 35.8 % (30.3-42.9); Hemoglobin 11.8 gm/dl (10.1-14.3); Mean Corpuscular HGB Conc 33 % (30-34); Mean Corpuscular Volume 74 fl (79-97); Platelet Count 206 K/mm3 (140-440); Red Blood Count 4.87 M/mm3 (3.65-5.03); Red Cell Distribution Width 15.7 % (13.2-15.2)
[2020-09-28 07:40] LABS: Alanine Aminotransferase 16 units/L (7-56); Blood Urea Nitrogen 9 mg/dL (7-17); Hemolysis Index 1
[2020-09-28 07:54] LABS: BUN/Creatinine Ratio 15
[2020-09-28] MEDS: PANTOPRAZOLE 40 MG INJ IV SCH ×2 (10:24→21:34)
[2020-09-28] MEDS: HEPARIN 5,000 UNIT/1 ML VIAL SUB-Q SCH ×2 (10:25→21:35)
--- NOTE | 2020-09-28 17:46 | Progress Note ---
Assessment and Plan - Patient Problems (1) Systemic inflammatory response syndrome Current Visit: Yes Status: Acute Plan to address problem: Patient has a high white count and tachycardic No source of infection found High white count secondary to acute pancreatitis Patient initiated on IV empiric antibiotics (2) Acute pancreatitis Current Visit: Yes Status: Acute Qualifiers: Pancreatitis type: unspecified pancreatitis type Acute pancreatitis complication: no infection or necrosis Qualified Code(s): K85.90 - Acute pancreatitis without necrosis or infection, unspecified Plan to address problem: Patient is kept n.p.o. IV Dilaudid 0.5 every 3 as needed IV fluids for now Pain management IV Zofran and Reglan as necessary Repeat amylase and lipase lipase is very high in the 900s (3) Hypertension Current Visit: Yes Status: Chronic Qualifiers: Hypertension type: essential hypertension Qualified Code(s): I10 - Essential (primary) hypertension Plan to address problem: Adjust medications as necessary May need Catapres patch (4) Duodenitis Current Visit: Yes Status: Acute Plan to address problem: IV Protonix for now (5) Hypokalemia Current Visit: Yes Status: Acute Plan to address problem: Supplemented (6) RBC microcytosis Current Visit: Yes Status: Chronic Plan to address problem: Possible iron deficiency anemia Iron level being checked (7) Malnutrition Current Visit: Yes Status: Chronic Qualifiers: Protein-calorie malnutrition severity: mild Plan to address problem: Dietitian consult because the patient is n.p.o. (8) DVT prophylaxis Current Visit: Yes Status: Acute Plan to address problem: On heparin and GI prophylaxis Subjective Date of service: 09/28/20 Objective - Constitutional Vitals: Vital Signs - 12hr 09/28/20 09/28/20 09/28/20 05:49 08:00 10:23 Pulse Rate 91 H Respiratory 18 20 Rate O2 Sat by Pulse Oximetry 09/28/20 09/28/20 09/28/20 13:00 15:03 16:00 Pulse Rate 91 H Respiratory 20 Rate O2 Sat by Pulse 96 Oximetry General appearance: Present: no acute distress, well-nourished - EENT Eyes: PERRL, EOM intact ENT: hearing intact, clear oral mucosa Ears: bilateral: normal - Neck Neck: supple, normal ROM - Respiratory Respiratory effort: normal Respiratory: bilateral: CTA - Breasts Breasts: normal - Cardiovascular Rhythm: regular Heart Sounds: Present: S1 & S2. Absent: gallop, rub Extremities: pulses intact, No edema, normal color, Full ROM - Gastrointestinal General gastrointestinal: Present: soft, non-tender, non-distended, normal bowel sounds - Genitourinary Female genitourinary: normal - Integumentary Integumentary: clear, warm, dry - Musculoskeletal Musculoskeletal: 1, strength equal bilaterally - Neurologic Neurologic: moves all extremities - Psychiatric Psychiatric: memory intact, appropriate mood/affect, intact judgment & insight - Labs CBC & Chem 7: 09/28/20 06:51 09/28/20 06:51 Labs: Abnormal lab results 09/27/20 09/28/20 09/28/20 Range/Units 20:58 06:51 06:51 WBC 15.1 H (4.5-11.0) K/mm3 MCV 74 L (79-97) fl MCH 24 L (28-32) pg RDW 15.7 H (13.2-15.2) % Sodium 135 L (137-145) mmol/L Potassium 3.1 L (3.6-5.0) mmol/L POC Glucose 108 H (70-105) mg/dL Calcium 8.0 L (8.4-10.2) mg/dL Albumin 3.0 L (3.9-5) g/dL Amylase 163 H (27-131) units/L Lipase 178 H (13-60) units/L
[2020-09-29] MEDS: HYDROmorphone 1 MG/1 ML INJ IV PRN ×3 (00:53→13:40)
[2020-09-29] MEDS: CEFEPIME/NS 2 GM/100 ML 2 GM/100 ML BAG IV SCH ×2 (05:30→14:28)
[2020-09-29 06:06] LABS: Basophils # (Auto) 0.1 K/mm3 (0.0-0.1); Eosinophils # (Auto) 0.1 K/mm3 (0.0-0.4); Eosinophils % (Auto) 0.7 % (0.0-4.3); Hematocrit 34.4 % (30.3-42.9); Hemoglobin 11.2 gm/dl (10.1-14.3); Lymphocytes # (Auto) 1.8 K/mm3 (1.2-5.4); Lymphocytes % (Auto) 14.4 % (13.4-35.0); Mean Corpuscular HGB Conc 33 % (30-34); Mean Corpuscular Volume 73 fl (79-97); Monocytes # (Auto) 1.2 K/mm3 (0.0-0.8); Monocytes % (Auto) 9.3 % (0.0-7.3); Platelet Count 215 K/mm3 (140-440)
[2020-09-29 06:30] LABS: Alanine Aminotransferase 13 units/L (7-56); Albumin 2.8 g/dL (3.9-5); Blood Urea Nitrogen 6 mg/dL (7-17); Calcium 7.8 mg/dL (8.4-10.2); Hemolysis Index 8
[2020-09-29 06:43] LABS: BUN/Creatinine Ratio 12
[2020-09-29] MEDS ORDERED: POTASSIUM CHLORIDE ER 20 MEQ TAB PO SCH (09:00)
[2020-09-29] MEDS: PANTOPRAZOLE 40 MG INJ IV SCH (10:47)
[2020-09-29] MEDS: HEPARIN 5,000 UNIT/1 ML VIAL SUB-Q SCH (10:47)
[2020-09-29] MEDS: D5W/0.9% NACL 1,000 ML IV SCH (14:28)
--- NOTE | 2020-09-29 14:58 | Progress Note ---
Assessment and Plan Assessment and plan: SIRS, acute -Presented with leukocytosis and tachycardia -09/26 blood cultures x2 no growth to date -09/26 CT abdomen/pelvis shows acute pancreatitis -Antibiotic therapy -Supportive care Acute pancreatitis -09/26 CT abdomen/pelvis shows findings most compatible with acute pancreatitis without necrosis (correlation with serum amylase and lipase recommended) alternatively these findings could represent duodenitis in the right clinical setting, hepatic cirrhosis, age-indeterminate compression fracture of the superior endplate of L2 with 30% height loss -Admit lipase 908 -09/27 amylase 331 -Antibiotic therapy -2/3 CLD -MIVF -Accu-Cheks every 4 while n.p.o. -Supportive care -Antiemetics as needed -As needed analgesic -Trend amylase and lipase Duodenitis, acute -09/26 CT abdomen/pelvis shows possible duodenitis -Protonix -Supportive care Hypokalemia, acute -Presented with a potassium of 3.4, repleted -09/27 potassium 3.5 -Repleted -Trend potassium -Intervene as needed -09/29 potassium 3.2, repleted Leukocytosis, acute -Presented with WBC of 20.1 which is now trending downward -Antibiotic therapy -Trend CBC RBC microcytosis, acute -Presented with H/H 13.2/42.1, MCV 74 -09/27 iron level 102, TIBC 298 Malnutrition, chronic -Dietary consult -Nutrition supplementation when not n.p.o. Hypertension, chronic -Patient was initiated on clonidine transdermal -Blood pressure monitoring per protocol -Patient's home medications include Norvasc -Hydralazine as needed for SBP greater than 160 DVT prophylaxis, acute -Heparin subcu -GI prophylaxis -SCDs to bilateral extremities while in bed Metabolic acidosis, resolved -09/26 CO2 20 on BMP -MIVF -Trend BMP -2/2 CO2 24 History Interval history: This 64-year-old female with hypertension, tobacco, marijuana and EtOH abuse (1 pint of hard liquor per 2 days with occasional 1 glass of wine) who was admitted to the hospital on 09/26 with a 2-day history of sharp, intermittent epigastric pain 10/10 associated with nausea and vomiting which worsened with prone position. Work-up in the emergency department revealed leukocytosis, hypokalemia, metabolic acidosis with elevated alkaline phos lipase and amylase. Her abdomen/pelvis CT showed acute pancreatitis without necrosis, hepatic steatosis and age indeterminate compression fracture of the superior endplate of L2. Patient was admitted to the hospital service for acute pancreatitis, n.p.o. and initiated antibiotic therapy. 2: Hypokalemia, metabolic acidosis persists but no acute events reported overnight. Patient states that she is symptomatically better, states her abdomen does swell to the appearance of 5-6 months and expresses wish for alcohol and tobacco cessation 2: Hyponatremic, hypokalemic, hypocalcemic, lipase and amylase improved to 178 and 163 respectively 23: Patient is again hypokalemic and hypocalcemic today. Her amylase and lipase have slightly improved as well as a leukocytosis. Patient complains of extreme hunger. Patient has been started on clear liquid diet. Hospitalist Physical - Constitutional Vitals: Temp Pulse Resp BP Pulse Ox 98.1 F 90 20 150/87 100 09/29/20 11:20 09/29/20 11:20 09/29/20 13:40 09/29/20 11:20 09/29/20 11:20 General appearance: Present: no acute distress, well-nourished - EENT Eyes: Present: PERRL, EOM intact ENT: hearing intact, clear oral mucosa, dentition normal - Neck Neck: Present: normal ROM - Respiratory Respiratory effort: normal Respiratory: bilateral: CTA - Cardiovascular Rhythm: regular Heart Sounds: Present: S1 & S2. Absent: systolic murmur, diastolic murmur - Extremities Extremities: no ischemia, pulses intact, pulses symmetrical, No edema, normal temperature, normal color, Full ROM Peripheral Pulses: within normal limits - Abdominal General gastrointestinal: soft, non-tender, non-distended, normal bowel sounds - Integumentary Integumentary: Present: clear, warm, dry - Psychiatric Psychiatric: appropriate mood/affect, cooperative - Neurologic Neurologic: CNII-XII intact, no focal deficits, moves all extremities - Allied Health Allied health notes reviewed: nursing Results - Labs CBC & Chem 7: 09/29/20 05:31 09/29/20 05:31 Labs: Laboratory Last Values WBC 12.8 K/mm3 (4.5-11.0) H 09/29/20 05:31 RBC 4.70 M/mm3 (3.65-5.03) 09/29/20 05:31 Hgb 11.2 gm/dl (10.1-14.3) 09/29/20 05:31 Hct 34.4 % (30.3-42.9) 09/29/20 05:31 MCV 73 fl (79-97) L 09/29/20 05:31 MCH 24 pg (28-32) L 09/29/20 05:31 MCHC 33 % (30-34) 09/29/20 05:31 RDW 16.0 % (13.2-15.2) H 09/29/20 05:31 Plt Count 215 K/mm3 (140-440) 09/29/20 05:31 Lymph % (Auto) 14.4 % (13.4-35.0) 09/29/20 05:31 [place] % (Auto) 9.3 % (0.0-7.3) H 09/29/20 05:31 Eos % (Auto) 0.7 % (0.0-4.3) 09/29/20 05:31 Baso % (Auto) 1.0 % (0.0-1.8) 09/29/20 05:31 Lymph # (Auto) 1.8 K/mm3 (1.2-5.4) 09/29/20 05:31 [place] # (Auto) 1.2 K/mm3 (0.0-0.8) H 09/29/20 05:31 Eos # (Auto) 0.1 K/mm3 (0.0-0.4) 09/29/20 05:31 Baso # (Auto) 0.1 K/mm3 (0.0-0.1) 09/29/20 05:31 Add Manual Diff Complete 09/27/20 04:54 Total Counted 200 09/27/20 04:54 Seg Neutrophils % 74.6 % (40.0-70.0) H 09/29/20 05:31 Seg Neuts % (Manual) 88.5 % (40.0-70.0) H 09/27/20 04:54 Lymphocytes % (Manual) 8.0 % (13.4-35.0) L 09/27/20 04:54 Monocytes % (Manual) 3.0 % (0.0-7.3) 09/27/20 04:54 Eosinophils % (Manual) 0.5 % (0.0-4.3) 09/27/20 04:54 Nucleated RBC % Not Reportable 09/27/20 04:54 Seg Neutrophils # 9.5 K/mm3 (1.8-7.7) H 09/29/20 05:31 Seg Neutrophils # Man 18.7 K/mm3 (1.8-7.7) H 09/27/20 04:54 Band Neutrophils # 0.0 K/mm3 09/27/20 04:54 Lymphocytes # (Manual) 1.7 K/mm3 (1.2-5.4) 09/27/20 04:54 Abs React Lymphs (Man) 0.0 K/mm3 09/27/20 04:54 Monocytes # (Manual) 0.6 K/mm3 (0.0-0.8) 09/27/20 04:54 Eosinophils # (Manual) 0.1 K/mm3 (0.0-0.4) 09/27/20 04:54 Basophils # (Manual) 0.0 K/mm3 (0.0-0.1) 09/27/20 04:54 Metamyelocytes # 0.0 K/mm3 09/27/20 04:54 Myelocytes # 0.0 K/mm3 09/27/20 04:54 Promyelocytes # 0.0 K/mm3 09/27/20 04:54 Blast Cells # 0.0 K/mm3 09/27/20 04:54 WBC Morphology Not Reportable 09/27/20 04:54 Hypersegmented Neuts Not Reportable 09/27/20 04:54 Hyposegmented Neuts Not Reportable 09/27/20 04:54 Hypogranular Neuts Not Reportable 09/27/20 04:54 Smudge Cells Not Reportable 09/27/20 04:54 Toxic Granulation Not Reportable 09/27/20 04:54 Toxic Vacuolation Not Reportable 09/27/20 04:54 Dohle Bodies Not Reportable 09/27/20 04:54 Pelger-Huet Anomaly Not Reportable 09/27/20 04:54 Cammie Rods Not Reportable 09/27/20 04:54 Platelet Estimate Consistent w auto 09/27/20 04:54 Clumped Platelets Not Reportable 09/27/20 04:54 Plt Clumps, EDTA Not Reportable 09/27/20 04:54 Large Platelets Not Reportable 09/27/20 04:54 Giant Platelets Not Reportable 09/27/20 04:54 Platelet Satelliting Not Reportable 09/27/20 04:54 Plt Morphology Comment Not Reportable 09/27/20 04:54 RBC Morphology Not Reportable 09/27/20 04:54 Dimorphic RBCs Not Reportable 09/27/20 04:54 Polychromasia Not Reportable 09/27/20 04:54 Hypochromasia Not Reportable 09/27/20 04:54 Poikilocytosis Not Reportable 09/27/20 04:54 Anisocytosis 1+ 09/27/20 04:54 Microcytosis Not Reportable 09/27/20 04:54 Macrocytosis Not Reportable 09/27/20 04:54 Spherocytes Not Reportable 09/27/20 04:54 Pappenheimer Bodies Not Reportable 09/27/20 04:54 Sickle Cells Not Reportable 09/27/20 04:54 Target Cells Not Reportable 09/27/20 04:54 Tear Drop Cells Not Reportable 09/27/20 04:54 Ovalocytes Not Reportable 09/27/20 04:54 Helmet Cells Not Reportable 09/27/20 04:54 Rios-Salcha Bodies Not Reportable 09/27/20 04:54 [place] Rings Not Reportable 09/27/20 04:54 Natalio Cells Not Reportable 09/27/20 04:54 Bite Cells Not Reportable 09/27/20 04:54 Crenated Cell Not Reportable 09/27/20 04:54 Elliptocytes Not Reportable 09/27/20 04:54 Acanthocytes (Spur) Not Reportable 09/27/20 04:54 Rouleaux Not Reportable 09/27/20 04:54 Hemoglobin C Crystals Not Reportable 09/27/20 04:54 Schistocytes Not Reportable 09/27/20 04:54 Malaria parasites Not Reportable 09/27/20 04:54 Jose Bodies Not Reportable 09/27/20 04:54 Hem Pathologist Commnt No 09/27/20 04:54 Sodium 138 mmol/L (137-145) 09/29/20 05:31 Potassium 3.2 mmol/L (3.6-5.0) L 09/29/20 05:31 Chloride 106.2 mmol/L (98-107) 09/29/20 05:31 Carbon Dioxide 26 mmol/L (22-30) 09/29/20 05:31 Anion Gap 9 mmol/L 09/29/20 05:31 BUN 6 mg/dL (7-17) L 09/29/20 05:31 Creatinine 0.5 mg/dL (0.6-1.2) L 09/29/20 05:31 Estimated GFR > 60 ml/min 09/29/20 05:31 BUN/Creatinine Ratio 12 % 09/29/20 05:31 Glucose 95 mg/dL (65-100) 09/29/20 05:31 POC Glucose 115 mg/dL (70-105) H 09/29/20 11:19 Calcium 7.8 mg/dL (8.4-10.2) L 09/29/20 05:31 Iron 102 ug/dL (37-170) 09/27/20 Unknown TIBC 298 mcg/dL (250-450) 09/27/20 Unknown Total Bilirubin 0.40 mg/dL (0.1-1.2) 09/29/20 05:31 AST 16 units/L (5-40) 09/29/20 05:31 ALT 13 units/L (7-56) 09/29/20 05:31 Alkaline Phosphatase 92 units/L (35-129) 09/29/20 05:31 Ammonia 28.0 umol/L (25-60) 09/28/20 06:51 Total Protein 6.0 g/dL (6.3-8.2) L 09/29/20 05:31 Albumin 2.8 g/dL (3.9-5) L 09/29/20 05:31 Albumin/Globulin Ratio 0.9 % 09/29/20 05:31 Amylase 136 units/L (27-131) H 09/29/20 05:31 Lipase 172 units/L (13-60) H 09/29/20 05:31 Urine Color Yellow (Yellow) 09/26/20 13:34 Urine Turbidity Clear (Clear) 09/26/20 13:34 Urine pH 6.0 (5.0-7.0) 09/26/20 13:34 Ur Specific [place] 1.053 (1.003-1.030) H 09/26/20 13:34 Urine Protein 30 mg/dl mg/dL (Negative) 09/26/20 13:34 Urine Glucose (UA) Neg mg/dL (Negative) 09/26/20 13:34 Urine Ketones Neg mg/dL (Negative) 09/26/20 13:34 Urine Blood Sm (Negative) 09/26/20 13:34 Urine Nitrite Neg (Negative) 09/26/20 13:34 Urine Bilirubin Neg (Negative) 09/26/20 13:34 Urine Urobilinogen < 2.0 mg/dL (<2.0) 09/26/20 13:34 Ur Leukocyte Esterase Neg (Negative) 09/26/20 13:34 Urine WBC (Auto) < 1.0 /HPF (0.0-6.0) 09/26/20 13:34 Urine RBC (Auto) 3.0 /HPF (0.0-6.0) 09/26/20 13:34 U Epithel Cells (Auto) 2.0 /HPF (0-13.0) 09/26/20 13:34 Urine Mucus Few /HPF 09/26/20 13:34 Microbiology: Microbiology 09/26/20 13:22 Peripheral/Venous Blood Culture - Preliminary NO GROWTH AFTER 48 HOURS 09/26/20 13:22 Peripheral/Venous Blood Culture - Preliminary NO GROWTH AFTER 48 HOURS Kim/IV: Voiding Method Toilet IV Catheter Type [Left Peripheral IV Antecubital] Active Medications - Current Medications Current Medications: Generic Name Dose Route Start Last Admin Trade Name Freq PRN Reason Stop Dose Admin Acetaminophen 650 mg 09/26/20 19:35 Acetaminophen 325 Mg Tab PO Q4H PRN Pain MILD(1-3)/Fever >100.5/MONTOYA Clonidine HCl 0.1 mg 09/27/20 07:00 09/27/20 10:34 Clonidine Tts 0.1 Mg/24 Hr Patch TD 0.1 mg Mo MAGGIE Administration Heparin Sodium (Porcine) 5,000 unit 09/27/20 10:00 09/29/20 10:47 Heparin 5,000 Unit/1 Ml Vial SUB-Q 5,000 unit Q12HR MAGGIE Administration Hydralazine HCl 10 mg 09/27/20 00:37 09/27/20 00:50 Hydralazine 20 Mg/1 Ml Inj IV 10/01/20 00:36 10 mg Q6HR PRN Administration Hypertension Hydromorphone HCl 0.5 mg 09/26/20 19:06 09/29/20 13:40 Hydromorphone 1 Mg/1 Ml Inj IV 0.5 mg Q3H PRN Administration Pain , Severe (7-10) Dextrose/Sodium Chloride 1,000 mls @ 75 mls/hr 09/26/20 20:00 09/29/20 14:28 D5ns IV 75 mls/hr DIRECT MAGGIE Administration Cefepime HCl 2 gm in 100 mls @ 200 mls/hr 09/26/20 20:00 09/29/20 14:28 Cefepime/Ns 2 Gm/100 Ml IV 10/01/20 12:29 200 mls/hr Q8H MAGGIE Administration Protocol Magnesium Hydroxide 30 ml 09/27/20 17:00 09/28/20 05:55 Magnesium Hydroxide (Mom) Oral Liqd Udc PO 30 ml Q8H PRN Administration Constipation Metoclopramide HCl 10 mg 09/26/20 19:40 Metoclopramide 10 Mg/2 Ml Inj IV Q6H PRN Nausea And Vomiting Ondansetron HCl 4 mg 09/26/20 19:40 09/26/20 20:06 Ondansetron 4 Mg/2 Ml Inj IV 4 mg Q3H PRN Administration Nausea And Vomiting Pantoprazole Sodium 40 mg 09/27/20 10:00 09/29/20 10:47 Pantoprazole 40 Mg Inj IV 40 mg BID MAGGIE Administration Sodium Chloride 10 ml 09/26/20 19:35 Sodium Chloride 0.9% 10 Ml Flush Syringe IV PRN PRN LINE FLUSH Sodium Chloride 10 ml 09/26/20 22:00 09/29/20 10:48 Sodium Chloride 0.9% 10 Ml Flush Syringe IV 10 ml BID AMGGIE Administration
--- NOTE | 2020-09-29 18:43 | Discharge Summary ---
Providers - Providers Date of Admission: 09/26/20 13:46 Date of discharge: 09/29/20 Attending physician: KAREL LIEBERMAN Primary care physician: MIGUELANGEL SERRANO MD Hospitalization Condition: Serious Disposition: DC-30 STILL A PATIENT - Discharge Diagnoses (1) Systemic inflammatory response syndrome Status: Acute (2) Acute pancreatitis Status: Acute Qualifiers: Pancreatitis type: unspecified pancreatitis type Acute pancreatitis complication: no infection or necrosis Qualified Code(s): K85.90 - Acute pancreatitis without necrosis or infection, unspecified (3) Hypertension Status: Chronic Qualifiers: Hypertension type: essential hypertension Qualified Code(s): I10 - Essential (primary) hypertension (4) Duodenitis Status: Acute (5) Hypokalemia Status: Acute (6) RBC microcytosis Status: Chronic (7) Malnutrition Status: Chronic Qualifiers: Protein-calorie malnutrition severity: mild (8) DVT prophylaxis Status: Acute Exam - Constitutional Vitals: Temp Pulse Resp BP Pulse Ox 98.1 F 90 20 150/87 100 09/29/20 11:20 09/29/20 11:20 09/29/20 13:40 09/29/20 11:20 09/29/20 11:20 Plan Follow up with: MIGUELANGEL SERRANO MD [Primary Care Provider] - 3-5 Days
[2020-09-29 18:48] VITALS: BP 141/79
== END 2020-09-29 19:45 | disposition home or self-care (01) | DRG 439 ==
LOC: ED 10:23 → OBSVTOIN 13:46 → 4A 13:46
PROVIDERS: ADMIT Internal Medicine; ATTEND Internal Medicine
DX: K85.90 Acute pancreatitis without necrosis or infection, unspecified (principal); R65.10 Systemic inflammatory response syndrome (SIRS) of non-infectious origin without acute organ dysfunction; E46 Unspecified protein-calorie malnutrition; E87.2 Acidosis; E87.6 Hypokalemia; I10 Essential (primary) hypertension; K29.80 Duodenitis without bleeding; F10.10 Alcohol abuse, uncomplicated; F17.200 Nicotine dependence, unspecified, uncomplicated; Y90.9 Presence of alcohol in blood, level not specified; D50.9 Iron deficiency anemia, unspecified; Z90.710 Acquired absence of both cervix and uterus; Z71.6 Tobacco abuse counseling; Z68.20 Body mass index [BMI] 20.0-20.9, adult; Z71.41 Alcohol abuse counseling and surveillance of alcoholic; Z79.899 Other long term (current) drug therapy
CPT/HCPCS: 36415; 74177; 80053; 81001; 82140; 82150; 82747; 82962; 83550; 83690; 85007; 85025; 85027; 87040; 96365; 96375; 99406; G0378; C9113; J0360; J0692; J1170; J1644; J2270; J2405; J2543; J3480; J7030; J7042; Q9967

== ENCOUNTER 2021-12-20 10:59 | Emergency (ER) | payer OTHER, MEDICARE ==
[2021-12-20 11:23] VITALS: BP 146/76
--- NOTE | 2021-12-20 11:49 | Emergency Department Report ---
Upper Extremity - HPI Chief Complaint: Extremity Injury, Upper Stated Complaint: LEFT HAND /POINTER FINGER Time Seen by Provider: 12/20/21 11:46 Upper Extremity: Left Index Finger Occurred When: >5 Days Mechanism: Fall Severity: mild Symptoms: Yes Pain with Movement, Yes Deformity, Yes Limited Range of Movement, Yes Swelling, No Numbness, No Weakness, No Bruising/Ecchymosis, No Laceration or Abrasion Other History: Patient is a 66-year-old female that comes to the emergency room 1 month after falling and injuring her left index finger. She states that she gave it time to heal because she did not think it was anything. However, continues to cause her pain and is continuously swollen. Patient denies any other injury. She has not seen her doctor ED Review of Systems ROS: Stated complaint: LEFT HAND /POINTER FINGER Other details as noted in HPI Comment: All other systems reviewed and negative ED Past Medical Hx - Past Medical History Previous Medical History?: Yes Hx Hypertension: Yes Hx Heart Attack/AMI: No Hx Congestive Heart Failure: No Hx Diabetes: No Hx Deep Vein Thrombosis: No Hx Pulmonary Embolism: No Hx Liver Disease: No Hx Renal Disease: No Hx Sickle Cell Disease: No Hx Arthritis: Yes Hx Seizures: No Hx Kidney Stones: No Hx Asthma: No Hx COPD: No Hx Tuberculosis: No Hx Dementia: No Hx HIV: No - Surgical History Past Surgical History?: Yes Hx Coronary Stent: No Hx Open Heart Surgery: No Hx Pacemaker: No Hx Internal Defibrillator: No Hx Appendectomy: No Hx Breast Surgery: No Additional Surgical History: Hysterectomy - Family History Family history: no significant - Social History Smoking Status: Heavy Tobacco Smoker Substance Use Type: None - Medications Home Medications: Home Medications Medication Instructions Recorded Confirmed Last Taken Type LORazepam [Ativan] 0.5 mg PO Q6H PRN 10 Days #20 09/29/20 Unknown Rx tablet Pantoprazole [Protonix INJ] 40 mg IV BID #60 vial 09/29/20 Unknown Rx amLODIPine 5 mg PO DAILY #30 09/29/20 Unknown Rx traMADoL [Ultram 50 MG tab] 50 mg PO Q8H PRN #21 tablet 09/29/20 Unknown Rx Upper Extremity Exam - Exam General: Vital signs noted. No distress. Alert and acting appropriately. Head and Torso: No HEENT Abnormality, No Neck Tenderness, No Chest/Lungs Abnormality, No Abdominal Tenderness, No Back Tenderness Shoulder Exam: Yes Normal Range of Motion in Shoulder, No Shoulder Tenderness, No Clavicle Tenderness, No Shoulder Deformity, No AC Joint Tenderness Arm Exam: No Arm/Humerus Tenderness, No Arm Deformity Elbow: No Elbow Tenderness, No Normal Range of Motion in Elbow, No Elbow Deformity Forearm: No Forearm Tenderness, No Forearm Deformity, No Pain with Pronation, No Pain with Supination Wrist: Yes Normal ROM in Wrist, No Wrist Tenderness, No Wrist Deformity, No Snuffbox Tenderness, No Pain with Axial Thumb Compression Hand: Yes Normal ROM in Digit(s), No Hand Tenderness, No Hand Deformity, No Digit Tenderness, No Digit(s) Deformity, No Tendon Dysfunction CMS Exam: No Broken Skin, No Normal Distal Pulses, No Normal Capillary Refill, No Normal Distal Sensation ED Course Vital Signs 12/20/21 11:21 Temperature 97.9 F Pulse Rate 90 Respiratory 14 Rate Blood Pressure 146/76 O2 Sat by Pulse 99 Oximetry ED Medical Decision Making - Radiology Data Radiology results: report reviewed, image reviewed FX - Medical Decision Making Vital Signs 12/20/21 11:21 Temperature 97.9 F Pulse Rate 90 Respiratory 14 Rate Blood Pressure 146/76 O2 Sat by Pulse 99 Oximetry Positive fracture on x-ray Finger splinted Patient's movement is limited by pain. She has rapid cap refill. Sensation is intact. Hand and wrist exam within normal limits. Patient being discharged home with discharge plan of care including diet, medications, activity and follow-up. She understands that there is malunion of the bone and that she needs to follow-up with Ortho to see if this in fact will heal without intervention. In the meantime she is placed in a splint to promote healing. She has been educated on rice treatment. Patient verbalizes understanding of discharge plan of care. - Differential Diagnosis Rule out fracture Critical care attestation.: If time is entered above; I have spent that time in minutes in the direct care of this critically ill patient, excluding procedure time. ED Disposition Clinical Impression: Finger fracture Qualifiers: Encounter type: initial encounter Finger: index finger Fracture type: closed Phalanx: proximal Fracture alignment: displaced Laterality: left Qualified Code(s): S62.611A - Displaced fracture of proximal phalanx of left index finger, initial encounter for closed fracture Disposition: HOME / SELF CARE / HOMELESS Is pt being admited?: No Does the pt Need Aspirin: No Condition: Stable Instructions: Finger Fracture, Adult Additional Instructions: Ice to the finger Elevate finger to reduce pain Keep splint on to allow finger to maintain alignment. [id number]-[id number] Motrin and Tylenol for pain You will need to see orthopedics for this fracture, I am not sure that it can heal on its own. Referral to orthopedics below Referrals: NAE NELSON MD [Primary Care Provider] - 3-5 Days DUNCAN MEIER MD [Staff Physician] - 3-5 Days Time of Disposition: 12:08
--- NOTE | 2021-12-20 12:01 | XRay Report ---
LEFT FINGERS 3 VIEWS INDICATION: trauma. COMPARISON: None. IMPRESSION: An oblique fracture is identified through the shaft of the proximal phalanx of the left index finger. The remaining visualized bony structures are intact. No significant DJD. Signer Name: Dmitri Marin Jr, MD Signed: 12/20/2021 11:56 AM Workstation Name: [id number]
[2021-12-20] MEDS ORDERED: IBUPROFEN 800 MG TAB PO ONE (12:09)
== END 2021-12-20 13:04 | disposition home or self-care (01) ==
LOC: ED 10:59
DX: S62.611A Displaced fracture of proximal phalanx of left index finger, initial encounter for closed fracture (principal); I10 Essential (primary) hypertension; M19.90 Unspecified osteoarthritis, unspecified site; F17.200 Nicotine dependence, unspecified, uncomplicated; Z90.710 Acquired absence of both cervix and uterus; W18.39XA Other fall on same level, initial encounter; Y93.89 Activity, other specified; Y92.89 Other specified places as the place of occurrence of the external cause; Y99.8 Other external cause status
CPT/HCPCS: 99283